=== PATIENT | female | born 1985 | race Caucasian/White ===

== ENCOUNTER 2018-04-12 14:16 | Emergency (ER) | payer BC ==
[~2018-04-12] VITALS: Ht 165.1 cm; Wt 77.3 kg
[~2018-04-12 14:16] MED LIST: DICLEGIS; IBU800 M1 PO; PERCOCET 325 MG1 TA2 PO; PREDNISONE1 MG; PRENATAL
[2018-04-12 14:19] VITALS: TEMP 98.2
[2018-04-12 14:45] LABS: COLLECTION METHOD CLEAN CATCH
[2018-04-12 14:50] LABS: BASO % 0.2 % (0.0-2.0); EOS # 0.1 (0.0-0.7); EOS % 1.3 % (0-4.0); GRAN # 4.6 (1.4-6.5); GRAN % 77.2 % (42.2-75.2); HEMATOCRIT 39.4 % (37.0-47.0); HEMOGLOBIN 14.2 g/dl (12.5-16.0); LYMPH # 0.9 (1.2-3.4); LYMPH % 15.2 % (20.0-51.0); MEAN CELL VOLUME 87 fl (80.0-100.0); MEAN CORPUSCULAR HEMOGLOBIN 31 pg (27.0-31.0); MEAN CORPUSCULAR HGB CONC 36 g/dl (33.0-37.0); MEAN PLATELET VOLUME 11.1 fl (7.4-10.4); MONO # 0.3 (0.1-0.6); MONO % 5.4 % (1.7-9.3); PLATELET COUNT 128 K/mm3 (130-400); RED BLOOD COUNT 4.55 M/mm3 (4.10-5.30); REDCELL DISTRIBUTION WIDTH-CV 13.1 % (11.5-14.5)
[2018-04-12 14:54] LABS: PH 6 (5-8); SQUAMOUS EPITHELIAL None Seen /hpf; URINE APPEARANCE Clear; URINE BACTERIA Rare /hpf; URINE BILIRUBIN Negative (NEGATIVE); URINE BLOOD Negative (NEGATIVE); URINE COLOR Yellow; URINE GLUCOSE Negative (NEGATIVE); URINE KETONE 1+ (NEGATIVE); URINE LEUKOCYTE ESTERASE Negative (NEGATIVE); URINE NITRATE Negative (NEGATIVE); URINE PROTEIN(semi-quant) Negative (NEGATIVE); URINE RBC None Seen /hpf
[2018-04-12 15:00] LABS: ALBUMIN 3.9 gm/dL (3.5-5.0); BILIRUBIN,TOTAL 0.6 mg/dL (0.0-1.0); C-REACTIVE PROTEIN 1.3 mg/dL (0.0-0.9); CREATININE, serum 0.63 mg/dL (0.52-1.25); POTASSIUM 3.7 mmol/L (3.4-5.0); TOTAL PROTEIN 7.5 gm/dL (6.4-8.2)
[2018-04-12] MEDS ORDERED: DICLEGIS (15:02)
[2018-04-12] MEDS ORDERED: PHENERGAN 25 TA25 MG PO (16:20)
[2018-04-12 16:22] VITALS: BP 1118/68; PULSE 72
== END 2018-04-12 16:22 | disposition home or self-care (01) ==
LOC: COL.ER 14:16
PROVIDERS: Family Medicine
DX: O99.611 Diseases of the digestive system complicating pregnancy, first trimester (principal); O99.281 Endocrine, nutritional and metabolic diseases complicating pregnancy, first trimester; K52.9 Noninfective gastroenteritis and colitis, unspecified; E86.0 Dehydration; Z3A.14 14 weeks gestation of pregnancy
CPT/HCPCS: J2550; J7030

== ENCOUNTER 2018-10-02 05:28 | Inpatient (IN) | payer BC ==
[~2018-10-02] VITALS: Ht 165.1 cm; Wt 88.6 kg
[2018-10-02] VITALS (18 sets, daily range): BP systolic 115–140; BP diastolic 59–80; PULSE 56–99; TEMP 97.3–98.4
[~2018-10-02 05:28] MED LIST changes: +PHENERGAN 25 TA25 MG PO
[2018-10-02 06:08] LABS: BASO % 0.1 % (0.0-2.0); EOS % 0.4 % (0-4.0); GRAN # 5.3 (1.4-6.5); GRAN % 74.2 % (42.2-75.2); HEMATOCRIT 37.6 % (37.0-47.0); LYMPH # 1.3 (1.2-3.4); LYMPH % 18.1 % (20.0-51.0); MEAN CELL VOLUME 92 fl (80.0-100.0); MEAN CORPUSCULAR HEMOGLOBIN 32 pg (27.0-31.0); MEAN CORPUSCULAR HGB CONC 35 g/dl (33.0-37.0); MONO # 0.4 (0.1-0.6); MONO % 6.2 % (1.7-9.3); PLATELET COUNT 92 K/mm3 (130-400); RED BLOOD COUNT 4.09 M/mm3 (4.10-5.30); REDCELL DISTRIBUTION WIDTH-CV 13.3 % (11.5-14.5)
[2018-10-02] MEDS ORDERED: PREDNISONE20 MG PO (06:22)
[2018-10-03 00:02] VITALS: BP 124/67; PULSE 62; TEMP 97.6
[2018-10-03 07:20] LABS: BASO % 0.2 % (0.0-2.0); EOS % 0.7 % (0-4.0); GRAN # 4.4 (1.4-6.5); GRAN % 74.2 % (42.2-75.2); HEMOGLOBIN 11.1 g/dl (12.5-16.0); LYMPH % 17.2 % (20.0-51.0); MEAN CELL VOLUME 93 fl (80.0-100.0); MEAN CORPUSCULAR HEMOGLOBIN 32 pg (27.0-31.0); MEAN CORPUSCULAR HGB CONC 34 g/dl (33.0-37.0); MEAN PLATELET VOLUME 11.5 fl (7.4-10.4); MONO # 0.4 (0.1-0.6); MONO % 7.2 % (1.7-9.3); PLATELET COUNT 57 K/mm3 (130-400); RED BLOOD COUNT 3.49 M/mm3 (4.10-5.30); REDCELL DISTRIBUTION WIDTH-CV 13.7 % (11.5-14.5)
[2018-10-03 07:21] LABS: HEMATOCRIT 32.4 % (37.0-47.0)
[2018-10-03 08:00] VITALS: BP 124/75; PULSE 77; TEMP 98.1
[2018-10-03] MEDS ORDERED: IBU800 M1 PO (08:44)
[2018-10-03] MEDS ORDERED: PERCOCET 325 MG1 TA2 PO (08:44)
[2018-10-03 16:00] VITALS: BP 135/72; PULSE 72; TEMP 97.8
[2018-10-03 21:30] VITALS: BP 133/73; PULSE 75; TEMP 98.3
[2018-10-04 08:16] VITALS: BP 131/75; PULSE 88; TEMP 97.6
[2018-10-04 08:45] LABS: HEMOGLOBIN 11.5 g/dl (12.5-16.0); MEAN CELL VOLUME 93 fl (80.0-100.0); MEAN CORPUSCULAR HEMOGLOBIN 31 pg (27.0-31.0); MEAN CORPUSCULAR HGB CONC 34 g/dl (33.0-37.0); MEAN PLATELET VOLUME 11.3 fl (7.4-10.4); PLATELET COUNT 79 K/mm3 (130-400); RED BLOOD COUNT 3.66 M/mm3 (4.10-5.30); REDCELL DISTRIBUTION WIDTH-CV 13.5 % (11.5-14.5)
[2018-10-04] MEDS ORDERED: PERCOCET 325 MG1 TA2 PO (10:56)
[2018-10-04] MEDS ORDERED: IBU800 M1 PO (10:56)
== END 2018-10-04 12:40 | disposition home or self-care (01) | DRG 787 ==
LOC: OB 05:28 → LDR 06:31 → OB 10-04 12:40
PROVIDERS: Student in an Organized Health Care Education/Training Program
PROC: 10D00Z1 Extraction of Products of Conception, Low, Open Approach (ICD-10-PCS; principal; 2018-10-02)
DX: O34.211 Maternal care for low transverse scar from previous cesarean delivery (principal); D69.3 Immune thrombocytopenic purpura; O26.893 Other specified pregnancy related conditions, third trimester; Z3A.39 39 weeks gestation of pregnancy; Z37.0 Single live birth; Z67.91 Unspecified blood type, Rh negative; O26.843 Uterine size-date discrepancy, third trimester
CPT/HCPCS: J0360; J0690; J1885; J2175; J2370; J2405; J2590; J3010; J7120; J7512

== ENCOUNTER → 2018-11-11 | Outpatient (CLI) | payer BC ==
[~2018-11-11] MED LIST changes: +PREDNISONE20 MG PO
--- NOTE | 2018-11-11 11:16 | NUR ---
Sunshine Aiden into clinic with 5 week old Evelin for evaluation, Evelin was born on [birth year] via c/s delivery with a weight of 8# 7.5 oz (3840 g). Sunshine reports Misty to be nursing 10 times per day and diapers to be WNL; however, sometimes Evelin's stool varies from yellow and seedy to green and mucousy. Sunshine verbalizes that nursing sessions are complicated by Evelin not consistantly staying on the breast and acting like she is in pain while nursing. Prefeed weight while clinic was 11 # 9 oz (5246 g). After nursing from both breast for approx 10 min each, Evelin only had a gain of 32 g. However, Sunshine did state Evelin did nurse shortly before coming into the clinic. This LC noted Evelin came on and off often while nursing and cried often during the feed LC discussed possible inidications for Evelin's behaviors during feedings. Slightly thick top lip frenulum noted. Also, quick let down on the right breast noted. POC: Cut out milk products for the next week to see if she notices a decrease in Evelin's gas pain and mucous stools; work on positioning and or pumping briefly before nursing to slow down flow so Evelin can handle flow better; make appointment with pediatric dentist to have frenulum evaluated to see if it could be effecting latch. Questions encouraged and answered. Understanding verbalized.
== END ==
LOC: OLC 10:18
DX: Z39.1 Encounter for care and examination of lactating mother (principal); Z71.89 Other specified counseling

== ENCOUNTER → 2018-12-10 | Outpatient (CLI) | payer BC ==
--- NOTE | 2018-12-10 15:51 | NUR ---
Pt, Sunshine Wolfe, presents for outpatient consult with 10 week old baby girl, Evelin Wolfe. They are being seen today to evaluate as Evelin is S/P 3 weeks from lip and tongue tie revision. Evelin was born on [birth year] and weighed 8#7.5oz. She has nursed well enough to gain weight, she weighed 11# 9oz at the walk-in clinic on 11/11/18. Pt reports ongoing fussiness with breastfeedings, clicking, leaking while , gassiness, and acting like she is in pain while nursing. Ideas reviewed at clinic were possible oversupply of milk, and tip and tongue tie. Evelin continues to feed every 2 hours in the daytime and will have one sleep at [facility] of about 4 hours. Evelin had the revision done 3 weeks ago, and some of the symptoms have improved but she contiues to be fussy at the breast, with maximum length of consecutive latching 5-10 minutes. She hardly nurses on the left at all anymore, she contiues to act like she is in pain during feedings with frequent releases of the breast. Evelin displayed the behavior described above during this consultation; arching, fussing, on and off the breast and generally acting frustrated. This LC has the impression that she is not getting enough milk to keep her interested. Today Evelin weighs 12# 7.6oz (5660 gms), which is below her weight at the 2 month appointment where she was 12# 11oz. Weight gain after just a couple minutes of nuring is 10gms, she refuses further latching. Pt will go to [facility] for a weight comparison between scales, she is then to call this LC and discuss information and feeding plan. Questions invited and answered.
== END ==
LOC: LAC 14:52
DX: Z39.1 Encounter for care and examination of lactating mother (principal); Z71.89 Other specified counseling

== ENCOUNTER → 2018-12-24 | Outpatient (CLI) | payer BC ==
--- NOTE | 2018-12-24 11:55 | NUR ---
Pt, Sunshine Wolfe, presents for follow-up consult with 12 week old baby girl, Evelin Wolfe. They have been following with this LC for feeding difficulty related to latching, ankyloglossia, and low milk supply. Pt is seeking evaluation/suggestions for improving bottle feeding effort today. At our last consult, 12/10/18, we were evaluating latching after Evelin was 3 weeks out from having a tongue and lip tie revised. Pt felt latching was not improving as expected. At that feeding it was discovered that Evelin had actually lost weight since the revision. This was confirmed at [facility]. Over the last 2 weeks Evelin's weight has been monitored at [facility] and is increasing as desired with EBM and formula by bottle. Evelin pretty much rejects now except at [facility] when she is sleepy. Currently she drinks 2-4oz every 2-4 hours. Pt declined a weight at this appointment as she was weighed two days ago and she is not relying on much. Pt bottle feeds Evelin in the usual fashion and it is observed she does not stay latched to the bottle well. With suck evaluation she does not tolerate advancement of the finger the normal depth of a proper latch before the gag reflex is invoked. Pt offers the bottle again without trying to place as deep and Evelin tolerates the feeding better, staying on for longer stretches, and finishing 3oz in about 15 minutes. roots toward Pt's chest, breast is offered but not latched. Discussion included having the lip tie re-evaluated, working with suck training (which was described), and evaluation of 's chronic nasal congestion which may make staying latched to breast or bottle more difficult. Pt will discuss information with her spouse and make decisions based on what they feel would be most helpful. Questions invited and answered. Pt will report any updates and determine if another consult is desired.
== END ==
LOC: LAC 10:51
DX: Z39.1 Encounter for care and examination of lactating mother (principal); Z71.89 Other specified counseling